=== PATIENT | male | born 1990 | race Caucasian/White ===

== ENCOUNTER 2022-10-12 10:38 | Outpatient (CLI) | payer OTHER, SELFPAY | END 2022-10-12 10:39 | disposition home or self-care (01) | LOC: AMB 10-17 09:55 | PROVIDERS: PCP Family Medicine; Visit Provider Family Medicine | DX: R55 Syncope and collapse (principal) | CPT/HCPCS: A0998 ==

== ENCOUNTER 2022-10-12 11:13 | Emergency (ER) | payer OTHER, SELFPAY ==
[2022-10-12 11:23] VITALS: BP 136/85; PULSE 88; RESP 20; TEMP 36.4; O2SAT 97; BMI 24.3
--- NOTE | 2022-10-12 11:57 | ED.GENADULT ---
HPI - General Adult General Date Seen: 10/12/22 Chief complaint: Syncope/Fainted Stated complaint: syncope Time Seen by Provider: 10/12/22 11:35 Source: patient Mode of arrival: ambulatory Limitations: no limitations History of Present Illness HPI narrative: Patient is a 31-year-old male here for evaluation of syncope. He reports that he awoke this morning feeling fine at about 945. He says that he was going to go over to his brother's house and had carried his desk top computer up a flight of stairs to put in his car. He felt fine during that time. He then went back downstairs, and had come back up the stairs. At that point he started to feel a little lightheaded and a little short of breath, he got some water and sat down, and then his parents reported a syncopal episode. He denies any chest pain or palpitations, he did not feel diaphoretic, did not necessarily feel like he was going to pass out but does say that he felt like he needed to sit down. He does have 1 previous episode of passing out a few years ago when he had injured his foot. Was evaluated at that time says nothing was found. Denies any history of exertional syncope. Does not have any known cardiac history. Denies any medical history aside from sleep apnea and tonsillectomy. Does not take any routine medications. Does not smoke or drink. Denies any drug use. Does say that the paramedics noted a 20-30 point drop in his blood pressure with standing. He was evaluated by EMS but then came in by private car. They did do a blood sugar which he says was normal. He says he thinks he fainted probably because he had not had anything to eat today and had not really had anything to drink since last night. No family history of sudden cardiac . He does have an uncle who has had some kind of heart surgery, He does not know details. He now feels well, does not have any symptoms. No recent illness, vomiting, diarrhea, chest pain, shortness of breath, fevers, lower extremity swelling or pain. Related Data Home Medications Medication Instructions Recorded Confirmed No Known Home Medications 10/12/22 10/12/22 Allergies Allergy/AdvReac Type Severity Reaction Status Date / Time No Known Drug Allergies Allergy Verified 10/12/22 11:25 Review of Systems Status of ROS: Reports: 10 or more systems reviewed and unremarkable except as noted in History and below Exam Narrative: Exam Narrative: Vital signs as noted above. In general, an alert, well-appearing patient. Head: Normocephalic, atraumatic. Eyes: Pupils are equal reactive. Extraocular movements are full. Conjunctivae are normal. ENT: Mucous membranes are moist. Throat is normal. Neck: Supple without lymphadenopathy. Heart: Regular rate and rhythm. No murmur or rub. Lungs: Clear bilaterally. No increased work of breathing, crackles or wheezes. Abdomen: Soft and nontender. No organomegaly. Extremities: Well perfused. No edema. No calf tenderness. Pulses intact. Neurologic: Patient is alert and oriented to person and place. Speech is fluent. Face is symmetric. Moves all extremities equally. Affect: Normal. Skin: Warm and dry. Well perfused. Const: Vital Signs, click to edit/add: Vital Signs - 24 hr 10/12/22 11:23 10/12/22 12:18 Temperature 97.6 F Pulse Rate [Right Pulse Oximeter] 88 Pulse Rate [orthos tatic lying Left P ulse Oximeter] 77 Pulse Rate [orthos tatic sitting Left Pulse Oximeter] 76 Pulse Rate [orthos tatic standing Lef t Blood Pressure C uff] 82 Respiratory Rate 20 Blood Pressure [Ri ght Upper Arm] 136/85 Blood Pressure [or thostatic lying Le ft Arm] 132/93 H Blood Pressure [or thostatic sitting Left Arm] 134/88 Blood Pressure [or thostatic standing Left Arm] 128/89 Pulse Oximetry 97 Oxygen Delivery Me thod Room Air Course Course Hospital Course: In EKG on my arrival shows a normal sinus rhythm, ventricular rate of 81 beats per minute. Corrected QT is 436 milliseconds. The EKG was done settings of 20 millimeters/millivolts so the voltages are unusually high, but then those parameters, it is otherwise a normal EKG. P.r. is normal at 134 milliseconds, no delta waves. No acute ST segment changes. He was asymptomatic while here. I did attempt to look at his heart using the bedside ultrasound but had a very difficult time getting good images. He does not have pericardial effusion, within the limits of for visibility, appears to have grossly normal function. His labs show a troponin of 0, D-dimer is normal. CBC shows a normal hemoglobin, white count of 9.35 with a normal diff. Electrolytes are normal, blood sugar is 113. We have not seen any ectopy on the monitor. He does not have any symptoms really to suggest an acute event today such as PE, DE, intracranial event, hemorrhage, and we have not seen evidence of arrhythmia here. Certainly orthostasis or vagal syncope is possible, we did repeat orthostatic vital signs here however and these are normal. I do think with this episode having some temporal relation to exercise, and without a clear inciting incident for vagal syncope, is probably reasonable to follow this up with an echo just to make sure there are no structural abnormalities. I would recommend that he follow-up with his primary doctor and then we can get an echo set up. In the meantime, would recommend no strenuous activity, return to ER for any repeat syncopal episodes, or new symptoms such as significant chest pain, shortness of breath. Vital Signs Vital signs: Initial Vital Signs Temperature 97.6 F 10/12/22 11:23 Temperature Source Temporal Artery Scan 10/12/22 11:23 Pulse Rate 88 10/12/22 11:23 Respiratory Rate 20 10/12/22 11:23 Blood Pressure 136/85 10/12/22 11:23 Blood Pressure Mean 102 10/12/22 11:23 Blood Pressure Position Sitting 10/12/22 11:23 Pulse Oximetry 97 10/12/22 11:23 Oxygen Delivery Method 10/12/22 11:23 Vital Signs Temperature 97.6 F 10/12/22 11:23 Pulse Rate 88 10/12/22 11:23 Respiratory Rate 20 10/12/22 11:23 Blood Pressure 136/85 10/12/22 11:23 Pulse Oximetry 97 10/12/22 11:23 Oxygen Delivery Method 10/12/22 11:23 Temperature 97.6 F 10/12/22 11:23 Pulse Rate 76 10/12/22 12:18 Respiratory Rate 20 10/12/22 11:23 Blood Pressure 134/88 10/12/22 12:18 Pulse Oximetry 97 10/12/22 11:23 Oxygen Delivery Method 10/12/22 11:23 Medical Decision Making Lab Data Labs: Lab Results 10/12/22 10/12/22 10/12/22 Range/Units 12:10 12:10 12:10 WBC 9.35 (4.50-11.00) K/uL RBC 5.51 (4.30-5.90) m/uL Hgb 16.7 (13.5-17.5) gm/dL Hct 47.2 (37.0-53.0) % MCV 86 (80-100) fL MCH 30 (26-34) pg MCHC 35 (32-36) gm/dL RDW Coeff of Ned 12.3 (11.5-15.5) % Plt Count 267 (140-440) K/uL Neut % (Auto) 62.8 (42.0-72.0) % Lymph % (Auto) 25.5 (20-44) % [place] % (Auto) 7.0 (0.0-11.0) % Eos % (Auto) 3.7 (0.0-7.0) % Baso % (Auto) 0.5 (0.0-3.0) % Neut # (Auto) 5.87 (1.7-7.0) K/uL Lymph # (Auto) 2.38 (0.90-2.90) K/uL [place] # (Auto) 0.70 (0.00-0.90) K/UL Eos # (Auto) 0.35 (0.00-0.50) K/uL Baso # (Auto) 0.05 (0.00-0.30) K/uL D-Dimer Quant (PE/DVT) < 0.27 (0.00-0.50) ug/ml Sodium 139 (135-149) mmol/L Potassium 4.0 (3.6-5.1) mmol/L Chloride 108 (96-114) mmol/L Carbon Dioxide 25 (20-32) mmol/L BUN 11 (5-24) mg/dL Creatinine 1.0 (0.5-1.5) mg/dL Estimated Creat Clear 123.18 Estimated GFR 104 ml/min Glucose 113 (60-115) mg/dL Calcium 8.9 (8.4-10.6) mg/dL POC Troponin I (0.01-0.04) ng/ml 10/12/22 Range/Units 12:10 WBC (4.50-11.00) K/uL RBC (4.30-5.90) m/uL Hgb (13.5-17.5) gm/dL Hct (37.0-53.0) % MCV (80-100) fL MCH (26-34) pg MCHC (32-36) gm/dL RDW Coeff of Ned (11.5-15.5) % Plt Count (140-440) K/uL Neut % (Auto) (42.0-72.0) % Lymph % (Auto) (20-44) % [place] % (Auto) (0.0-11.0) % Eos % (Auto) (0.0-7.0) % Baso % (Auto) (0.0-3.0) % Neut # (Auto) (1.7-7.0) K/uL Lymph # (Auto) (0.90-2.90) K/uL [place] # (Auto) (0.00-0.90) K/UL Eos # (Auto) (0.00-0.50) K/uL Baso # (Auto) (0.00-0.30) K/uL D-Dimer Quant (PE/DVT) (0.00-0.50) ug/ml Sodium (135-149) mmol/L Potassium (3.6-5.1) mmol/L Chloride (96-114) mmol/L Carbon Dioxide (20-32) mmol/L BUN (5-24) mg/dL Creatinine (0.5-1.5) mg/dL Estimated Creat Clear Estimated GFR ml/min Glucose (60-115) mg/dL Calcium (8.4-10.6) mg/dL POC Troponin I 0.00 L (0.01-0.04) ng/ml Discharge Plan Discharge Clinical Impression: Syncope Patient Disposition: Home, Self-Care Condition: Stable Instructions: Syncope (DC) Additional Instructions: Follow-up with your primary clinic in the next week or so, I would recommend that you have an echo (ultrasound) of your heart as an outpatient to make sure there are no structural abnormalities. In the meantime, avoid strenuous activities. Return to the emergency department for any current fainting episodes, or new symptoms such as significant chest pain or shortness of breath. Prescriptions: No Action No Known Home Medications Follow Up/Referrals: Tino Malhotra MD [Primary Care Provider] - Stand Alone Forms: [facility] Info Instructions
[2022-10-12 12:18] VITALS: BP 128/89; BP 132/93; BP 134/88; PULSE 76; PULSE 77; PULSE 82
[2022-10-12 12:21] LABS: Basophils Absolute Auto 0.05 K/uL (0.00-0.30); Basophils Percent Auto 0.5 % (0.0-3.0); Eosinophils Absolute Auto 0.35 K/uL (0.00-0.50); Eosinophils Percent Auto 3.7 % (0.0-7.0); Hematocrit 47.2 % (37.0-53.0); Hemoglobin* 16.7 gm/dL (13.5-17.5); Immature Granulocytes Abs Auto 0.05 K/uL (0.00-0.30); Immature Granulocytes Pct Auto 0.5 %; Lymphocytes Absolute Auto 2.38 K/uL (0.90-2.90); Lymphocytes Percent Auto 25.5 % (20-44); Mean Corpuscular HGB Conc 35 gm/dL (32-36); Mean Corpuscular Hemoglobin 30 pg (26-34); Mean Corpuscular Volume 86 fL (80-100); Neutrophils Absolute Auto 5.87 K/uL (1.7-7.0); Neutrophils Percent Auto 62.8 % (42.0-72.0); Platelet Count* 267 K/uL (140-440); RDW Coefficient of Variation % 12.3 % (11.5-15.5); Red Blood Count 5.51 m/uL (4.30-5.90); White Blood Count* 9.35 K/uL (4.50-11.00)
[2022-10-12 12:34] LABS: Slide Review Reflex No
[2022-10-12 12:39] LABS: Chloride* 108 mmol/L (96-114)
[2022-10-12 12:40] LABS: Sodium* 139 mmol/L (135-149)
[2022-10-12 12:42] LABS: Est. Creatinine Clearance* 123.18; Estimated Glomerular Filt Rate 104 ml/min
[2022-10-12 12:43] LABS: Blood Urea Nitrogen* 11 mg/dL (5-24); Calcium* 8.9 mg/dL (8.4-10.6); Carbon Dioxide* 25 mmol/L (20-32); Glucose* 113 mg/dL (60-115)
[2022-10-12 12:58] LABS: D Dimer Quantitative* < 0.27 ug/ml (0.00-0.50)
== END 2022-10-12 13:25 | disposition home or self-care (01) ==
PROVIDERS: Emergency Provider Emergency Medicine; PCP Family Medicine
DX: R55 Syncope and collapse (principal)
CPT/HCPCS: 36415; 80048; 84484; 85025; 85379; 93005; 99284

== ENCOUNTER 2025-01-11 09:30 | Outpatient (CLI) | payer OTHER, SELFPAY | END 2025-01-11 09:31 | disposition home or self-care (01) | LOC: NFLDREF 01-13 15:04 | PROVIDERS: PCP Family Medicine; Referring Provider Family Medicine; Visit Provider Family Medicine | DX: R39.9 Unspecified symptoms and signs involving the genitourinary system (principal); R35.0 Frequency of micturition | CPT/HCPCS: 87086 ==

== ENCOUNTER 2025-07-11 15:51 | Outpatient (CLI) | payer OTHER, SELFPAY ==
--- NOTE | 2025-07-11 16:00 | CRLHL7_ITS ---
For Patients: As a result of the Century Cures Act, medical imaging exams and procedure reports are released immediately into your electronic medical record. You may view this report before your referring provider. If you have questions, please contact your health care provider. Indication: Nasal congestion. Technique: Noncontrast axial CT of the paranasal sinuses with coronal reformats are provided. No comparisons. Findings: There is a 8 millimeter mucous retention cyst or polyp within the floor of the left maxillary sinus. Small mucous retention cysts or polyps within the right maxillary sinus with the largest measuring 5 millimeters maximum dimension. The remainder of the visualized paranasal sinuses are clear. The ostiomeatal complexes are patent bilaterally. The visualized intraorbital contents appear within normal limits. Nasal airways appear patent. Impression: 1. Mild inflammatory changes within the maxillary sinuses. 2. Otherwise, unremarkable CT of the paranasal sinuses. Please note that all CT scans at this facility use dose modulation, iterative reconstruction, and/or weight-based dosing when appropriate to reduce radiation dose to as low as reasonably achievable. Dictated by Channing Ruelas MD @ 07/11/2025 7:17:44 PM (Electronically Signed)
== END 2025-07-11 15:52 | disposition home or self-care (01) ==
LOC: CT 15:51
PROVIDERS: PCP Family Medicine; Visit Provider Physician Assistant
DX: R09.81 Nasal congestion (principal); J39.1 Other abscess of pharynx; R93.0 Abnormal findings on diagnostic imaging of skull and head, not elsewhere classified
CPT/HCPCS: 70486